=== PATIENT | male | born 1995 | race Hispanic/Latino ===

== ENCOUNTER 2022-09-19 23:57 | Inpatient (IN) | payer OTHER, SELFPAY ==
[2022-09-20] MEDS ORDERED: Morphine 4 MG/ML VIAL ONE ×2 (00:11→01:35)
[2022-09-20] MEDS ORDERED: Ondansetron PF 4 MG/2 ML Vial ONE (00:11)
[2022-09-20 00:19] LABS: #Monocytes 0.6 10x3/uL (0.0-1.1); #Neutrophils 10.1 10x3/uL (1.5-8.4); %Basophils 0.3 % (0.0-2.0); %Eosinophils 0.3 % (0.0-6.0); %Lymphocytes 12.2 % (18.0-47.0); %Monocytes 4.6 % (0.0-10.0); %Neutrophils 82.3 % (40.0-75.0); Hemoglobin 15.8 g/dL (13.5-17.5); Mean Corpuscular HGB CONC 33.8 g/dL (32.0-36.0); Mean Corpuscular Hemoglobin 26.6 pg (27.0-33.0); Mean Corpuscular Volume 78.6 fl (81.2-95.1); Mean Platelet Volume 8.7 fl (7.4-10.4); Platelet Count 229 10x3/uL (150-450); RBC Distribution Width 13.4 % (11.5-14.5); Red Blood Cell (RBC) Count 5.94 10x6/uL (4.32-5.72); White Blood Cell (WBC) Count 12.2 10x3/uL (3.5-10.5)
[2022-09-20 00:28] LABS: INR-International Normal Ratio 1.1; PTT 29.6 sec (22.0-33.0); Prothrombin Time 11.4 sec (9.5-12.1)
[2022-09-20 00:42] LABS: ALT (SGPT) 97 U/L (8-55); AST (SGOT) 109 U/L (5-34); Albumin 4.6 g/dL (3.5-5.0); Alkaline Phosphatase 85 U/L (40-110); Anion Gap 19 mmol/L (10-20); BUN (Urea Nitrogen) 17 mg/dL (8.9-20.6); Bilirubin, Total 1.6 mg/dL (0.2-1.2); Calc. Creatinine Clearance 0 mL/min (70-130); Calcium 8.7 mg/dL (7.8-10.44); Carbon Dioxide 22 mmol/L (22-29); Chloride 96 mmol/L (98-107); Estimated GFR 126; Globulin 3.1 g/dL (2.4-3.5); Glucose 137 mg/dL (70-105); Lipase 118 U/L (8-78); Magnesium 1.5 mg/dL (1.6-2.6); Potassium 3.4 mmol/L (3.5-5.1); Protein, Total 7.7 g/dL (6.0-8.3); Sodium 134 mmol/L (136-145)
[2022-09-20] MEDS ORDERED: Ondansetron PF 4 MG/2 ML Vial IVP PRN ×3 (02:35→14:26)
[2022-09-20] MEDS ORDERED: Morphine 2 MG/ML VIAL SLOW IVP PRN (02:35)
[2022-09-20] MEDS ORDERED: Morphine 4 MG/ML VIAL SLOW IVP PRN ×2 (02:35→07:54)
[2022-09-20] MEDS ORDERED: Pantoprazole 40 MG VIAL IVP SCH (03:15)
[2022-09-20] MEDS ORDERED: Lactated Ringer's 1,000 ML ONE (03:24)
[2022-09-20] MEDS ORDERED: Lactated Ringer's 1,000 ML IV SCH (03:30)
[2022-09-20] MEDS: Potassium Chloride 20 MEQ in Premix Bag 1 BAG IVPB SCH ×2 (03:30→05:49)
[2022-09-20] MEDS ORDERED: Magnesium 2 GM/50 ML(in water) 2 GM in Premix Bag 1 BAG IVPB SCH (03:30)
[2022-09-20 03:46] VITALS: BMI 28.8
[2022-09-20 04:22] LABS: Hemoglobin 14.1 g/dL (13.5-17.5)
[2022-09-20] MEDS ORDERED: Potassium Chloride 20 MEQ in Lactated Ringer's 1,000 ML IV SCH (04:30)
[2022-09-20 04:38] LABS: Cholesterol 188 mg/dl (< 200 Desired); HDL Cholesterol 33 mg/dL (>60 Neg Risk); Triglycerides 644 mg/dL (Less than 150)
[2022-09-20 06:19] LABS: Cardiac Risk 5.7 (Less than 4.5)
[2022-09-20] MEDS ORDERED: Naloxone HCl 0.4 mg/ml Vial IV PRN ×3 (07:52→14:26)
[2022-09-20 08:17] LABS: Anion Gap 16 mmol/L (10-20); BUN (Urea Nitrogen) 10 mg/dL (8.9-20.6); Calc. Creatinine Clearance 178 mL/min (70-130); Calcium 8.1 mg/dL (7.8-10.44); Carbon Dioxide 22 mmol/L (22-29); Chloride 101 mmol/L (98-107); Estimated GFR 130; Glucose 130 mg/dL (70-105); Lipase 391 U/L (8-78); Magnesium 2.2 mg/dL (1.6-2.6); Potassium 3.8 mmol/L (3.5-5.1); Sodium 135 mmol/L (136-145)
[2022-09-20] MEDS: cefTRIAXone\\ROCEPHIN 1 GM in Sodium Chloride 0.9% 100 ML IVPB SCH (08:21)
[2022-09-20 09:25] LABS: Amphetamine Not Detected (NotDetected); Barbiturates Screen Not Detected (NotDetected); Benzodiazepine Screen Not Detected (NotDetected); Cocaine Metabolite Screen Not Detected (NotDetected); Methadone Not Detected (NotDetected); Methamphetamine Not Detected (NotDetected); Opiate Screen Detected (NotDetected); Oxycodone Screen Not Detected (NotDetected); Phencyclidine (PCP) Not Detected (NotDetected); THC/Cannabinoid Screen Detected (NotDetected); Tricyclic Screen Not Detected (NotDetected)
[2022-09-20 09:29] LABS: Acetaminophen Less than 10.0 mcg/mL (10.0-30.0); Alcohol Less than 10 mg/dL (Less than 10); Salicylate Less than 8.0 mg/dL (15.0-30.0)
[2022-09-20 09:30] LABS: ALT (SGPT) 75 U/L (8-55); AST (SGOT) 78 U/L (5-34); Alkaline Phosphatase 77 U/L (40-110); Bilirubin, Direct 0.6 mg/dL (0.1-0.3); Bilirubin, Total 1.9 mg/dL (0.2-1.2); Protein, Total 6.6 g/dL (6.0-8.3)
[2022-09-20 10:07] LABS: Hemoglobin 14.9 g/dL (13.5-17.5)
[2022-09-20] MEDS ORDERED: diphenhydrAMINE 50 MG/ML VIAL IVP PRN ×2 (10:16→14:26)
[2022-09-20] MEDS ORDERED: Zolpidem Tartrate 5 MG TAB PO PRN (10:16)
[2022-09-20] MEDS ORDERED: diphenhydrAMINE 25 MG CAP PO PRN ×2 (10:16→14:26)
[2022-09-20] MEDS ORDERED: diphenhydrAMINE 50 MG/ML VIAL IM PRN ×2 (10:16→14:26)
[2022-09-20] MEDS ORDERED: Promethazine HCl 25 MG/ML VIAL IM PRN ×2 (10:16→14:26)
[2022-09-20] MEDS ORDERED: FENTANYL 500 MCG/10 ML VIAL 2,000 MCG in Sodium Chloride 0.9% 60 ML IV PRN (10:16)
[2022-09-20] MEDS: Potassium Chloride 20 MEQ in Lactated Ringer's 1,000 ML IV SCH ×2 (10:28→11:52)
[2022-09-20] MEDS ORDERED: Communication Order-Pharmacy FS PRN ×2 (10:30→14:30)
[2022-09-20] MEDS ORDERED: FENTANYL 500 MCG/10 ML VIAL 1,000 MCG in Sodium Chloride 0.9% 30 ML IV PRN (10:45)
[2022-09-20] MEDS ORDERED: Iopamidol 300 61% 100 ML VIAL FS ONE (11:46)
[2022-09-20] MEDS: FENTANYL 500 MCG/10 ML VIAL 1,000 MCG in Sodium Chloride 0.9% 30 ML IV PRN ×2 (15:00→19:27)
[2022-09-20] MEDS: Lactated Ringer's 1,000 ML IV SCH ×2 (17:23→20:34)
[2022-09-20] MEDS: Pantoprazole 40 MG VIAL IVP SCH (20:33)
[2022-09-21] MEDS: Lactated Ringer's 1,000 ML IV SCH ×5 (00:31→22:36)
[2022-09-21] MEDS: Zolpidem Tartrate 5 MG TAB PO PRN (00:31)
[2022-09-21 04:36] LABS: Hemoglobin 16.4 g/dL (13.5-17.5); Mean Corpuscular Hemoglobin 26.9 pg (27.0-33.0); Mean Corpuscular Volume 79.3 fl (81.2-95.1); Mean Platelet Volume 9.3 fl (7.4-10.4); Platelet Count 179 10x3/uL (150-450); RBC Distribution Width 14.8 % (11.5-14.5); Red Blood Cell (RBC) Count 6.09 10x6/uL (4.32-5.72); White Blood Cell (WBC) Count 16.6 10x3/uL (3.5-10.5)
[2022-09-21 04:39] LABS: MDiff Complete? YES
[2022-09-21 04:42] LABS: ALT (SGPT) 56 U/L (8-55); AST (SGOT) 48 U/L (5-34); Alkaline Phosphatase 88 U/L (40-110); Anion Gap 15 mmol/L (10-20); BUN (Urea Nitrogen) 7 mg/dL (8.9-20.6); Bilirubin, Total 1.7 mg/dL (0.2-1.2); Calc. Creatinine Clearance 176 mL/min (70-130); Calcium 8.9 mg/dL (7.8-10.44); Carbon Dioxide 24 mmol/L (22-29); Chloride 95 mmol/L (98-107); Estimated GFR 130; Globulin 2.9 g/dL (2.4-3.5); Glucose 144 mg/dL (70-105); Lipase 397 U/L (8-78); Protein, Total 6.9 g/dL (6.0-8.3); Sodium 130 mmol/L (136-145)
[2022-09-21 04:59] LABS: Band 16 % (5-11); Lymphocytes 5 % (21-51); Monocytes 4 % (0-10); Neutrophil 75 % (42-75)
[2022-09-21] MEDS: Pantoprazole 40 MG VIAL IVP SCH ×2 (08:23→22:28)
[2022-09-21] MEDS: cefTRIAXone\\ROCEPHIN 1 GM in Sodium Chloride 0.9% 100 ML IVPB SCH (08:29)
[2022-09-21] MEDS ORDERED: Piperacillin/Tazobactam 3.375 GM in Sodium Chloride 0.9% 100 ML IVPB SCH ×2 (08:45→09:00)
[2022-09-21] MEDS ORDERED: diphenhydrAMINE 50 MG/ML VIAL IM PRN (09:09)
[2022-09-21] MEDS ORDERED: Naloxone HCl 0.4 mg/ml Vial IV PRN (09:09)
[2022-09-21] MEDS ORDERED: diphenhydrAMINE 25 MG CAP PO PRN (09:09)
[2022-09-21] MEDS ORDERED: Ondansetron PF 4 MG/2 ML Vial IVP PRN (09:09)
[2022-09-21] MEDS ORDERED: HYDROmorphone 10 mg/100 ml CADD IVPB PRN (09:09)
[2022-09-21] MEDS ORDERED: diphenhydrAMINE 50 MG/ML VIAL IVP PRN (09:09)
[2022-09-21] MEDS ORDERED: Promethazine HCl 25 MG/ML VIAL IM PRN (09:09)
[2022-09-21] MEDS ORDERED: Communication Order-Pharmacy FS PRN (09:15)
[2022-09-21] MEDS: HYDROmorphone/PF 10 MG in Sodium Chloride 0.9% 49 ML IVPB PRN (10:11)
[2022-09-21] MEDS: Ketorolac Tromethamine 30 MG/ML VIAL IVP PRN ×3 (11:28→22:29)
[2022-09-21] MEDS ORDERED: Lactated Ringer's 500 ML IV SCH (11:45)
[2022-09-21] MEDS: Piperacillin/Tazobactam 3.375 GM in Sodium Chloride 0.9% 100 ML IVPB SCH ×2 (13:29→22:28)
[2022-09-22] MEDS: HYDROmorphone/PF 10 MG in Sodium Chloride 0.9% 49 ML IVPB PRN (02:56)
[2022-09-22] MEDS: Lactated Ringer's 1,000 ML IV SCH ×3 (03:17→22:56)
[2022-09-22] MEDS: Zolpidem Tartrate 5 MG TAB PO PRN ×2 (03:22→23:01)
[2022-09-22] MEDS: Ketorolac Tromethamine 30 MG/ML VIAL IVP PRN ×4 (03:29→22:54)
[2022-09-22 04:23] LABS: #Monocytes 0.7 10x3/uL (0.0-1.1); %Basophils 0.3 % (0.0-2.0); %Eosinophils 0.2 % (0.0-6.0); %Lymphocytes 10.7 % (18.0-47.0); %Monocytes 7.6 % (0.0-10.0); Hemoglobin 13.3 g/dL (13.5-17.5); Mean Corpuscular HGB CONC 32.4 g/dL (32.0-36.0); Mean Corpuscular Hemoglobin 26.6 pg (27.0-33.0); Mean Platelet Volume 9.5 fl (7.4-10.4); Platelet Count 144 10x3/uL (150-450); RBC Distribution Width 14.6 % (11.5-14.5); White Blood Cell (WBC) Count 8.7 10x3/uL (3.5-10.5)
[2022-09-22 04:44] LABS: Phosphorus 1.7 mg/dL (2.3-4.7)
[2022-09-22 04:49] LABS: ALT (SGPT) 76 U/L (8-55); AST (SGOT) 119 U/L (5-34); Albumin 3.5 g/dL (3.5-5.0); Alkaline Phosphatase 189 U/L (40-110); Anion Gap 16 mmol/L (10-20); BUN (Urea Nitrogen) 15 mg/dL (8.9-20.6); Bilirubin, Total 3.5 mg/dL (0.2-1.2); Calc. Creatinine Clearance 158 mL/min (70-130); Calcium 8.6 mg/dL (7.8-10.44); Carbon Dioxide 24 mmol/L (22-29); Chloride 99 mmol/L (98-107); Estimated GFR 125; Globulin 2.7 g/dL (2.4-3.5); Glucose 98 mg/dL (70-105); Lipase 109 U/L (8-78); Magnesium 1.9 mg/dL (1.6-2.6); Potassium 3.9 mmol/L (3.5-5.1); Protein, Total 6.2 g/dL (6.0-8.3); Sodium 135 mmol/L (136-145)
[2022-09-22] MEDS: Piperacillin/Tazobactam 3.375 GM in Sodium Chloride 0.9% 100 ML IVPB SCH ×3 (07:21→22:54)
[2022-09-22] MEDS: Pantoprazole 40 MG VIAL IVP SCH ×2 (11:26→22:55)
[2022-09-22 12:09] LABS: Reference Lab Name LABCORP
[2022-09-22 12:10] LABS: Ref Lab Test Ordered IgG CLAS 4
[2022-09-23] MEDS: HYDROmorphone/PF 10 MG in Sodium Chloride 0.9% 49 ML IVPB PRN ×2 (00:05→17:48)
[2022-09-23] MEDS: Lactated Ringer's 1,000 ML IV SCH ×5 (04:24→19:10)
[2022-09-23] MEDS: Piperacillin/Tazobactam 3.375 GM in Sodium Chloride 0.9% 100 ML IVPB SCH ×3 (04:25→21:31)
[2022-09-23 05:10] LABS: #Eosinphils 0.1 10x3/uL (0.0-0.5); #Monocytes 0.4 10x3/uL (0.0-1.1); %Basophils 0.4 % (0.0-2.0); %Eosinophils 1.8 % (0.0-6.0); %Lymphocytes 30.3 % (18.0-47.0); %Monocytes 8.5 % (0.0-10.0); %Neutrophils 58.6 % (40.0-75.0); Hemoglobin 12.3 g/dL (13.5-17.5); Mean Corpuscular HGB CONC 32.7 g/dL (32.0-36.0); Mean Corpuscular Hemoglobin 27.2 pg (27.0-33.0); Mean Corpuscular Volume 83.2 fl (81.2-95.1); Mean Platelet Volume 9.5 fl (7.4-10.4); Platelet Count 130 10x3/uL (150-450); RBC Distribution Width 14.1 % (11.5-14.5); Red Blood Cell (RBC) Count 4.52 10x6/uL (4.32-5.72); White Blood Cell (WBC) Count 5.1 10x3/uL (3.5-10.5)
[2022-09-23 05:30] LABS: ALT (SGPT) 54 U/L (8-55); AST (SGOT) 58 U/L (5-34); Albumin 3.4 g/dL (3.5-5.0); Alkaline Phosphatase 170 U/L (40-110); Anion Gap 17 mmol/L (10-20); BUN (Urea Nitrogen) 10 mg/dL (8.9-20.6); Bilirubin, Total 1.6 mg/dL (0.2-1.2); Calc. Creatinine Clearance 178 mL/min (70-130); Calcium 8.3 mg/dL (7.8-10.44); Carbon Dioxide 23 mmol/L (22-29); Chloride 101 mmol/L (98-107); Estimated GFR 130; Globulin 2.8 g/dL (2.4-3.5); Glucose 72 mg/dL (70-105); Potassium 3.5 mmol/L (3.5-5.1); Protein, Total 6.2 g/dL (6.0-8.3); Sodium 137 mmol/L (136-145)
[2022-09-23] MEDS: Pantoprazole 40 MG VIAL IVP SCH ×2 (08:06→21:32)
[2022-09-23] MEDS: Ketorolac Tromethamine 30 MG/ML VIAL IVP PRN ×3 (08:06→22:18)
[2022-09-23 10:02] LABS: Phosphorus 2.5 mg/dL (2.3-4.7)
[2022-09-24] MEDS: Lactated Ringer's 1,000 ML IV SCH ×4 (00:40→18:20)
[2022-09-24 05:21] LABS: #Eosinphils 0.2 10x3/uL (0.0-0.5); #Monocytes 0.5 10x3/uL (0.0-1.1); #Neutrophils 2.3 10x3/uL (1.5-8.4); %Basophils 0.6 % (0.0-2.0); %Lymphocytes 39.7 % (18.0-47.0); %Monocytes 9.9 % (0.0-10.0); %Neutrophils 45.4 % (40.0-75.0); Hemoglobin 14.1 g/dL (13.5-17.5); Mean Corpuscular HGB CONC 32.9 g/dL (32.0-36.0); Mean Corpuscular Hemoglobin 27.2 pg (27.0-33.0); Mean Corpuscular Volume 82.8 fl (81.2-95.1); Platelet Count 154 10x3/uL (150-450); RBC Distribution Width 13.9 % (11.5-14.5); Red Blood Cell (RBC) Count 5.18 10x6/uL (4.32-5.72)
[2022-09-24 05:30] LABS: ALT (SGPT) 51 U/L (8-55); AST (SGOT) 37 U/L (5-34); Albumin 4.1 g/dL (3.5-5.0); Alkaline Phosphatase 156 U/L (40-110); Anion Gap 16 mmol/L (10-20); BUN (Urea Nitrogen) 7 mg/dL (8.9-20.6); Bilirubin, Total 0.9 mg/dL (0.2-1.2); Calc. Creatinine Clearance 156 mL/min (70-130); Calcium 9.3 mg/dL (7.8-10.44); Carbon Dioxide 25 mmol/L (22-29); Chloride 104 mmol/L (98-107); Estimated GFR 125; Globulin 3.4 g/dL (2.4-3.5); Glucose 111 mg/dL (70-105); Magnesium 2.1 mg/dL (1.6-2.6); Potassium 3.8 mmol/L (3.5-5.1); Protein, Total 7.5 g/dL (6.0-8.3); Sodium 141 mmol/L (136-145)
[2022-09-24] MEDS: Piperacillin/Tazobactam 3.375 GM in Sodium Chloride 0.9% 100 ML IVPB SCH ×3 (05:40→20:20)
[2022-09-24] MEDS: Pantoprazole 40 MG VIAL IVP SCH ×2 (08:33→20:20)
[2022-09-24] MEDS: Ketorolac Tromethamine 30 MG/ML VIAL IVP PRN (08:33)
[2022-09-24] MEDS ORDERED: Lactated Ringer's 1,000 ML IV SCH (12:11)
[2022-09-24] MEDS: HYDROcodone/Acetaminophen 5/325 mg Tablet PO PRN ×2 (16:54→22:47)
[2022-09-25] MEDS: Piperacillin/Tazobactam 3.375 GM in Sodium Chloride 0.9% 100 ML IVPB SCH (05:15)
[2022-09-25] MEDS: Lactated Ringer's 1,000 ML IV SCH (05:16)
[2022-09-25] MEDS: Pantoprazole 40 MG VIAL IVP SCH (08:24)
[2022-09-25 13:59] VITALS: BP 134/89; TEMP 97.9
== END 2022-09-25 13:45 | disposition home or self-care (01) | DRG 439 ==
LOC: CSHERS 23:57 → CSHTELE 09-20 03:01 → OBSVTOIN 09-20 03:02 → CSHTELE 09-22 01:51
PROVIDERS: ADMIT Family Medicine; ATTEND Internal Medicine
DX: K85.90 Acute pancreatitis without necrosis or infection, unspecified (principal); K92.0 Hematemesis; E87.1 Hypo-osmolality and hyponatremia; R18.8 Other ascites; J90 Pleural effusion, not elsewhere classified; D72.829 Elevated white blood cell count, unspecified; E78.5 Hyperlipidemia, unspecified; E87.6 Hypokalemia; E83.39 Other disorders of phosphorus metabolism; E83.42 Hypomagnesemia; K74.60 Unspecified cirrhosis of liver; R79.89 Other specified abnormal findings of blood chemistry; F10.20 Alcohol dependence, uncomplicated; Z71.41 Alcohol abuse counseling and surveillance of alcoholic; Z83.79 Family history of other diseases of the digestive system
CPT/HCPCS: 36415; 74177; 74181; 76705; 80053; 80061; 80306; 80307; 83690; 83735; 84100; 85025; 85610; 85730; 96361; 96374; 96375; 96376; C9113; J0696; J1170; J1885; J2270; J2272; J2405; J2543; J3010; J3475; J3480; J3490; J7120; Q9967